=== PATIENT | female | born 1970 | race Caucasian/White ===

== ENCOUNTER → 2016-10-21 | Outpatient (CLI) | payer BC | END | disposition home or self-care (01) | LOC: C.PAPS 13:33 | PROVIDERS: ATTEND Family Medicine | DX: Z12.4 Encounter for screening for malignant neoplasm of cervix (principal) ==

== ENCOUNTER → 2016-11-12 | Outpatient (CLI) | payer BC ==
--- NOTE | 2016-11-12 17:09 | MAMMOGRAPHY REPORT ---
BILATERAL DIGITAL SCREENING MAMMOGRAM TOMOSYNTHESIS WITH CAD: 11/12/2016 CLINICAL HISTORY: Routine screening. Patient has no complaints. TECHNIQUE: Breast tomosynthesis in addition to standard 2D mammography was performed. Current study was also evaluated with a Computer Aided Detection (CAD) system. COMPARISON: Comparison is made to exam dated: 12/15/2012 mammogram. BREAST COMPOSITION: The tissue of both breasts is extremely dense, which lowers the sensitivity of mammography. FINDINGS: A linear scar marker overlies the periareolar right breast. There are a few benign-appear ing calcifications in the breasts. No suspicious mass, architectural distortion or cluster of suspi cious microcalcifications is seen. IMPRESSION: ACR BI-RADS CATEGORY 1: NEGATIVE There is no mammographic evidence of malignancy. A 1 year screening mammogram is recommended. The p atient will receive written notification of the results. Approximately 10% of breast cancers are not detected with mammography. A negative mammographic repor t should not delay biopsy if a clinically suggestive mass is present. Shannan Benavides M.D. ay/:11/12/2016 16:54:41 Security Assurance Specialist: Alice OLIVAS(Otilio)([place]), [facility] letter sent: Normal 1/2 BI-RADS Code: ACR BI-RADS Category 1: Negative
== END | disposition home or self-care (01) ==
LOC: C.MAMM 14:42
PROVIDERS: ATTEND Family Medicine
DX: Z12.31 Encounter for screening mammogram for malignant neoplasm of breast (principal)

== ENCOUNTER → 2017-10-26 | Outpatient (CLI) | payer OTHER | END | disposition home or self-care (01) | LOC: C.LABSPEC 11:03 | PROVIDERS: ATTEND Family Medicine | DX: Z11.3 Encounter for screening for infections with a predominantly sexual mode of transmission (principal) ==

== ENCOUNTER → 2017-10-26 | Outpatient (CLI) | payer OTHER | END | disposition home or self-care (01) | LOC: C.PAPS 12:00 | PROVIDERS: ATTEND Family Medicine | DX: Z12.72 Encounter for screening for malignant neoplasm of vagina (principal) ==